=== PATIENT | female | born 1960 | race Native Hawaiian/Other Pacific Islander ===

== ENCOUNTER 2016-07-25 16:34 | Outpatient (CLI) | payer OTHER ==
[~2016-07-25 16:34] MED LIST: ALBUTEROL0.083 % IN; ASA LO-DOSE81 MG OR; CARV25TA PO; CELEXA10 MG PO; CIPRO500 MG PO; FLUTMIS6 INH; FURO40TA93 PO; GLIP5TAB65 PO; IBUP800T30 PO; IPRASOL5 IN; LISINOP/HCTZ1 TA2 PO; LORA0.5T17 PO; METF500T PO; NYST100016 TOP; RANI150T78 PO; SIMV40TA57; TRAM50TA PO
[2016-07-25 17:59] LABS: POTASSIUM 4.5 mmol/L (3.6-5.2)
[2016-07-25 18:14] LABS: PLATELET COUNT 103 K/uL (152-353)
== END 2016-07-25 17:34 | disposition home or self-care (01) ==
LOC: LAB 16:34
PROVIDERS: Nurse Practitioner Family
DX: E11.9 Type 2 diabetes mellitus without complications (principal); E03.8 Other specified hypothyroidism; Z79.899 Other long term (current) drug therapy; Z51.81 Encounter for therapeutic drug level monitoring
CPT/HCPCS: 80053; 80061; 83036; 84439; 84443; 85027

== ENCOUNTER 2016-11-22 13:17 | Outpatient (CLI) | payer OTHER ==
[2016-11-22 14:27] LABS: PLATELET COUNT 102 K/uL (152-353)
[2016-11-22 14:41] LABS: POTASSIUM 5.8 mmol/L (3.6-5.2)
== END 2016-11-22 19:42 | disposition home or self-care (01) ==
LOC: LAB 13:17
PROVIDERS: Nurse Practitioner Family
DX: E11.9 Type 2 diabetes mellitus without complications (principal); E78.4 Other hyperlipidemia; I10 Essential (primary) hypertension; E03.8 Other specified hypothyroidism; E55.9 Vitamin D deficiency, unspecified
CPT/HCPCS: 80053; 80061; 82306; 82607; 83036; 84439; 84443; 85027

== ENCOUNTER 2017-03-11 14:59 | Outpatient (CLI) | payer OTHER ==
[2017-03-11 16:02] LABS: PLATELET COUNT 99 K/uL (152-353)
[2017-03-11 16:38] LABS: POTASSIUM 5.5 mmol/L (3.6-5.2)
== END 2017-03-11 16:00 | disposition home or self-care (01) ==
LOC: LAB 14:59
PROVIDERS: Nurse Practitioner Family
DX: I10 Essential (primary) hypertension (principal); E78.4 Other hyperlipidemia; E03.8 Other specified hypothyroidism; E11.9 Type 2 diabetes mellitus without complications; K21.9 Gastro-esophageal reflux disease without esophagitis; M51.37 Other intervertebral disc degeneration, lumbosacral region; Z79.899 Other long term (current) drug therapy; Z51.81 Encounter for therapeutic drug level monitoring
CPT/HCPCS: 80053; 80061; 83036; 84436; 84443; 85027

== ENCOUNTER 2017-11-20 11:27 | Outpatient (CLI) | payer OTHER ==
[2017-11-20 13:57] LABS: PLATELET COUNT 99 K/uL (152-353)
[2017-11-20 14:17] LABS: POTASSIUM 5.3 mmol/L (3.6-5.2)
== END 2017-11-20 19:29 | disposition home or self-care (01) ==
LOC: RAD 11:27 → LAB 11:27 → RAD 19:29
PROVIDERS: Nurse Practitioner Family
DX: E03.8 Other specified hypothyroidism (principal); E11.9 Type 2 diabetes mellitus without complications; I10 Essential (primary) hypertension; E78.4 Other hyperlipidemia; Z79.899 Other long term (current) drug therapy; Z51.81 Encounter for therapeutic drug level monitoring; R13.12 Dysphagia, oropharyngeal phase; R05 Cough
CPT/HCPCS: 80053; 80061; 83036; 84436; 84443; 85027

== ENCOUNTER 2018-01-22 10:52 | Emergency (ER) | payer OTHER ==
[~2018-01-22] VITALS: Ht 160 cm; Wt 84.4 kg
[2018-01-22 10:50] VITALS: TEMP 97.6
[2018-01-22 12:36] LABS: PLATELET COUNT 82 K/uL (152-353)
[2018-01-22 12:51] LABS: POTASSIUM 4.2 mmol/L (3.6-5.2)
[2018-01-22 13:07] LABS: PARTIAL THROMBOPLASTIN TIME 24.5 SECONDS (24.5-33.6)
[2018-01-22 13:44] VITALS: BP 143/80
== END 2018-01-22 13:44 | disposition home or self-care (01) ==
LOC: ED 10:52
DX: M79.604 Pain in right leg (principal)
CPT/HCPCS: 80053; 81000; 84550; 85027; 85610; 85730; 99283

== ENCOUNTER 2018-03-31 13:46 | Outpatient (CLI) | payer OTHER | END 2018-03-31 19:55 | disposition home or self-care (01) | LOC: MAMMO 13:46 | DX: Z12.31 Encounter for screening mammogram for malignant neoplasm of breast (principal) ==

== ENCOUNTER 2018-08-27 11:54 | Day surgery (SDC) | payer OTHER | END 2018-08-27 13:52 | disposition home or self-care (01) | LOC: OR 11:54 | PROC: 0DB68ZZ Excision of Stomach, Via Natural or Artificial Opening Endoscopic (ICD-10-PCS; principal; 2018-08-27) | DX: K20.8 Other esophagitis (principal); K25.7 Chronic gastric ulcer without hemorrhage or perforation; K29.00 Acute gastritis without bleeding; R10.12 Left upper quadrant pain; R10.11 Right upper quadrant pain; K21.9 Gastro-esophageal reflux disease without esophagitis; D69.6 Thrombocytopenia, unspecified; R16.0 Hepatomegaly, not elsewhere classified | CPT/HCPCS: J2704 ==

== ENCOUNTER 2018-09-10 11:11 | Day surgery (SDC) | payer OTHER ==
[2018-09-10 12:31] LABS: PLATELET COUNT 178 K/uL (152-353)
== END 2018-09-10 14:55 | disposition home or self-care (01) ==
LOC: OR 11:11
PROVIDERS: Internal Medicine Gastroenterology
PROC: 0DBL8ZZ Excision of Transverse Colon, Via Natural or Artificial Opening Endoscopic (ICD-10-PCS; principal; 2018-09-10)
DX: K63.5 Polyp of colon (principal); D12.3 Benign neoplasm of transverse colon; K64.8 Other hemorrhoids; Z12.11 Encounter for screening for malignant neoplasm of colon; R10.84 Generalized abdominal pain
CPT/HCPCS: 80053; 85027; J2001; J2250; J2405; J2704

== ENCOUNTER 2018-12-09 12:07 | Outpatient (CLI) | payer OTHER ==
[2018-12-09 12:23] LABS: PLATELET COUNT 100 K/uL (152-353)
[2018-12-09 13:11] LABS: POTASSIUM 5.2 mmol/L (3.6-5.2)
== END 2018-12-09 19:15 | disposition home or self-care (01) ==
LOC: LABW 12:07
PROVIDERS: Physician Assistant
DX: E11.9 Type 2 diabetes mellitus without complications (principal); E03.9 Hypothyroidism, unspecified; K76.0 Fatty (change of) liver, not elsewhere classified
CPT/HCPCS: 36415; 80053; 82306; 83735; 84443; 85027

== ENCOUNTER 2019-04-08 09:08 | Outpatient (CLI) | payer OTHER | END 2019-04-08 19:39 | disposition home or self-care (01) | LOC: CT 09:08 | DX: R10.31 Right lower quadrant pain (principal) | CPT/HCPCS: 36415; 82565; 84520 ==

== ENCOUNTER 2019-04-20 09:35 | Outpatient (CLI) | payer OTHER ==
[2019-04-20 10:09] LABS: POTASSIUM 5.6 mmol/L (3.6-5.2)
[2019-04-20 10:12] LABS: PLATELET COUNT 91 K/uL (152-353)
== END 2019-04-20 19:11 | disposition home or self-care (01) ==
LOC: LABW 09:35
PROVIDERS: Physician Assistant
DX: E11.9 Type 2 diabetes mellitus without complications (principal); N18.3 Chronic kidney disease, stage 3 (moderate); E55.9 Vitamin D deficiency, unspecified; E03.9 Hypothyroidism, unspecified
CPT/HCPCS: 36415; 80053; 80061; 82306; 83036; 84439; 84443; 84481; 85027

== ENCOUNTER 2019-04-21 09:41 | Outpatient (CLI) | payer OTHER | END 2019-04-21 19:33 | disposition home or self-care (01) | LOC: LABW 09:41 | DX: R94.6 Abnormal results of thyroid function studies (principal); E11.9 Type 2 diabetes mellitus without complications; E03.9 Hypothyroidism, unspecified; D69.6 Thrombocytopenia, unspecified; E66.01 Morbid (severe) obesity due to excess calories | CPT/HCPCS: 36415; 82024; 83001; 83002; 84146; 84443; 85651 ==